=== PATIENT | female | born 1955 | race Asian ===

== ENCOUNTER 2024-08-12 15:40 | Emergency (ER) | payer MEDICARE, SELFPAY ==
[2024-08-12 15:43] VITALS: BP 142/90
--- NOTE | 2024-08-12 16:21 | ED.GENMED ---
History of Present Illness
General
Chief Complaint: Dizziness
Source: patient and family
Exam Limitations: none
Time Seen by Provider: 08/12/24 16:20
Nursing documentation reviewed up to this point in time: agreed with
History of Present Illness
History of Present Illness:
69-year-old female presents emergency department complaining of feeling dizzy since waking up at 7 AM. She has a history of vertigo for the past 2 years, usually takes meclizine, but ran out of meclizine. She took Dramamine with a little bit of
relief. She denies any focal weakness. She states her primary care called in meclizine for her.
Past History
Past History
ED Past Medical History: GERD and Other (Anemia)
ED Past Surgical History: Other (Nasal polyp)
Social History
Tobacco: Non-smoker
Alcohol: None
Drug: None
Personal:
Living: with family
Employment: Retired
Review of Systems
Review of Systems
Allergies reviewed?: Yes
All Other Systems: Not applicable
Constitutional: Reports no symptoms
EENT: Reports no symptoms
Respiratory: Reports no symptoms
Cardiac: Reports no symptoms
ABD/GI: Reports no symptoms
: Reports no symptoms
Musculoskeletal: Reports no symptoms
Skin: Reports no symptoms
Neurological: Reports dizzy
Endocrine: Reports no symptoms
Hematologic/Lymphatic: Reports no symptoms
Psychiatric: Reports no symptoms
Phy Exam
Physical Exam
Physical Exam:
Physical Exam
General: no apparent distress, not acutely ill
Neck: supple. no meningeal signs. normal posterior pharynx
Heart: s1/s2 regular rate and rhythm, no murmur. equal radial
pulses.
HEENT: Pupils equal round reactive to light, EOMI, leftward
Lungs: no acute respiratory distress. clear bilaterally
Abdomen: normal bowel sounds. not tender. no CVAT
Neuro: alert and oriented. no focal neurological deficits cranial nerves II through XII intact
Skin: no rash
Psychiatric: well kept. interactive and cooperative
Extremities: no edema. no calf tenderness. negative homans. good distal pulses
Course
Orders/Labs/Results
Orders:
Orders
08/12/24
Electrocardiogram (*1) Stat
Comment: DONE EMR
08/12/24 16:21
Electrocardiogram (*1) Urgent
Reason for Study: Vertigo / Dizzy
EKG- Treatment ONCE
08/12/24 16:32
IV Insert/Care/Rem.- Treatment PRN
Physical Therapy Consult [Pt Eval And Treat] Urgent
Treatment: vestibular evaluation
Activity Level: Ambulate
08/12/24 16:43
Complete Blood Count/With Diff Urgent
Comprehensive Metabolic Panel Urgent
08/12/24 17:44
Meclizine [Antivert] 25 mg PO NOW STA
Abnormal Lab Results
08/12/24
16:43
MCHC 32.1 L g/dL
(33.0-37.0)
Glucose 136 H mg/dl
(70-99)
08/12/24 16:43
08/12/24 16:43
Vital Signs
Initial and Last Documented VS:
Initial Vital Signs
Temp Pulse Resp BP Pulse Ox
97.9 F 86 16 142/90 98
08/12/24 15:43 08/12/24 15:43 08/12/24 15:43 08/12/24 15:43 08/12/24 15:43
Last Documented Vital Signs
Temp Pulse Resp BP Pulse Ox
97.9 F 65 16 140/80 95
08/12/24 15:43 08/12/24 18:45 08/12/24 18:45 08/12/24 16:42 08/12/24 18:15
MDM/Problems Addressed
Differential Diagnosis Includes:
Vertigo, dysrhythmia
MDM/Problems Addressed:
69-year-old female with dizziness, likely due to vertigo. No neurologic deficits. Patient had similar symptoms with a CT scan in the past. Do not suspect CVA. Stable for discharge. Treat with meclizine, vestibular therapy. Return precautions
given.
*Pulse Oximetry
Patient hypoxic: no
*EKG
Interpreted by ED Provider?: Yes
EKG Intrepretation Date: 08/12/24
EKG Intrepretation Time: 16:37
Interpretation: normal
Comparison EKG: no changes
Heart Rate: 67
Rate: normal
[place]: normal axis
Interval: normal interval
QRS Pattern: normal QRS
Ischemia: no ischemia
*Fine Patcher Interpretation
Rate: normal
Interpretation: normal
Heart Rate: 65
Rhythm: sinus
*Critical Care Note
Total Time (30-74mins, 75-104mins- exclusive of procedures): Not Applicable
Data Reviewed
Further Testing Considered But Not Given:
CT head not indicated
Patient Management
Social determinants of health affecting care: Living situation and Strong social support
Escalation/DeEscalation of care consider admission/obs:
Admit not indicated
ED Attending Note
-
Portions of this chart may have been created with voice recognition software.� Occasional wrong word or��sound alike� substitutions may have occurred due to the inherent limitations of voice recognition software.
Discharge Plan
Departure
Patient Disposition: Home (Routine Discharge)
Date of Disposition: 08/12/24
Time of Disposition: 18:56
Patient with high blood pressure during this ER visit?: Yes
Condition: Good
Discharge Problem:
Vertigo
Instructions: Vertigo (a Type of Dizziness) (DC), BLOOD PRESSURE
Prescriptions:
No Action
meclizine 25 mg tablet
25 mg PO TID PRN (Reason: dizziness) Qty: 14 0RF
ondansetron 4 mg Tablet,Disintegrating
4 mg PO TIDPRN PRN (Reason: nausea/vomiting) Qty: 12 0RF
ondansetron 4 mg tablet,disintegrating
4 mg PO TID PRN (Reason: nausea and vomiting) 4 Days Qty: 10 0RF
Interventions
Interventions:
*Risk Screen - Suicide Last Done: 08/12/24 15:43
*General Assessment Last Done: 08/12/24 16:39
*Neglect/Abuse Screening Last Done: 08/12/24 16:39
*ED- Fall Risk Assessment Last Done: 08/12/24 16:39
*ED COVID-19 Vaccine History Last Done: 08/12/24 16:39
ED- Neurological Assessment Last Done: 08/12/24 17:08
ED- Cardiac Assessment Last Done: 08/12/24 17:08
Discharge Date and Time
Print Language: GEORGIAN
[2024-08-12 16:38] VITALS: BMI 29.3
[2024-08-12 16:42] VITALS: BP 140/80
[2024-08-12 16:56] LABS: % Basophils 0.3 % (0-2); % Eosinophils 1.9 % (0-6); % Immature Granulocytes 0.2 % (0-0.5); % Monocytes 5.2 % (1.7-9.3); % Neutrophils 63.4 % (42.2-75.2); Absolute Eosinophils 0.2 10^3/uL (0-0.7); Absolute Lymphocytes 2.6 10^3/uL (1.2-3.4); Absolute Monocytes 0.5 10^3/uL (0.1-0.6); Absolute Neutrophils 5.7 10^3/uL (1.4-6.5); Hematocrit 38.9 % (37.0-47.0); Hemoglobin 12.5 g/dL (12.0-16.0); Mean Corp Hgb Conc. 32.1 g/dL (33.0-37.0); Mean Corpuscular Hgb 27.9 pg (27.0-31.0); Mean Corpuscular Volume 86.8 fL (81.0-99.0); Mean Platelet Volume 10.3 fL (7.4-10.4); Nucleated Red Blood Cells % 0 %; Platelet Count 309 10^3/uL (130-400); Red Blood Cell Count 4.48 10^6/uL (4.20-5.40); Red Cell Dist. Width 13.9 % (11.5-14.5); White Blood Cell Count 9.1 10^3/uL (4.8-10.8)
[2024-08-12 17:08] VITALS: BP 140/80; PULSE 69; O2SAT 97
[2024-08-12 17:10] LABS: ALT (SGPT) 20 U/L (0-35); AST (SGOT) 19 U/L (14-36); Alkaline Phosphatase 85 U/L (38-126); Blood Urea Nitrogen 10 mg/dl (7-17); Calcium 9.7 mg/dl (8.4-10.2); Carbon Dioxide 28 mmol/L (22-30); Chloride 104 mmol/L (98-107); Estimated Creatinine Clearance 68 ml/min; Glucose 136 mg/dl (70-99); Potassium 4.2 mmol/L (3.5-5.1); Sodium 138 mmol/L (135-145); Total Bilirubin 0.7 mg/dl (0.2-1.3); Total Protein 7.6 g/dl (6.3-8.2); eGFR > 60.00
[2024-08-12] MEDS: ANTIVERT 25 MG PO (17:56)
== END 2024-08-12 19:13 | disposition home or self-care (01) ==
LOC: EMR 15:40
PROVIDERS: EMERGENCY PHYSICIAN Emergency Medicine
DX: R42 Dizziness and giddiness (principal); K21.9 Gastro-esophageal reflux disease without esophagitis
CPT/HCPCS: 99284; 80053; 85025; 93005